=== PATIENT | male | born 1965 | race Caucasian/White ===

== ENCOUNTER 2016-07-12 15:33 | Emergency (ER) | payer OTHER ==
[~2016-07-12] VITALS: Ht 162.6 cm; Wt 76.0 kg
[2016-07-12 15:38] VITALS: Ht 162.6 cm; Wt 76.0 kg
[2016-07-12] MEDS ORDERED: morphine 4 MG/ML VIAL IV STA (18:57)
[2016-07-12] MEDS ORDERED: ONDANSETRON 4 MG INJ IV STA (18:57)
[2016-07-12 19:23] LABS: ADD UMIC NO; URINE BILIRUBIN (Dip) NEGATIVE (NEGATIVE); URINE BLOOD (Dip) NEGATIVE (NEGATIVE); URINE COLOR LT. YELLOW (YELLOW); URINE GLUCOSE (Dip) >=1000 % (NEGATIVE); URINE KETONES (Dip) NEGATIVE (NEGATIVE); URINE LEUKOCYTE ESTERASE (Dip) NEGATIVE (NEGATIVE); URINE NITRITE (Dip) NEGATIVE (NEGATIVE); URINE TOTAL PROTEIN (Dip) NEGATIVE (NEGATIVE); URINE UROBILINOGEN (Dip) 0.2 E.U./dL (0.1-1.0)
[2016-07-12 19:24] LABS: BASOPHILS % 0.3 % (0.0-2.0); EOSINOPHILS # 0.2 10^3/ul (0.0-0.5); EOSINOPHILS % 1.9 % (0.0-7.0); HEMATOCRIT 47.4 % (42.0-52.0); HEMOGLOBIN 16.5 g/dl (14.0-18.0); LYMPHOCYTES # 1.3 10^3/ul (0.8-2.9); LYMPHOCYTES % 15.4 % (15.0-51.0); MEAN CORPUSCULAR HGB CONC 34.8 g/dl (32.0-37.0); MEAN PLATELET VOLUME 7.7 fl (7.4-10.4); MONOCYTE # 0.8 10^3/ul (0.3-0.9); MONOCYTES % 9.8 % (0.0-11.0); NEUTROPHIL # 6.3 10^3/ul (1.6-7.5); NEUTROPHILS % 72.6 % (39.0-77.0); PLATELET COUNT 312 10^3/UL (140-440); RED BLOOD COUNT 5.15 10^6/ul (4.70-6.10); RED CELL DISTRIBUTION WIDTH 12.6 % (11.5-14.5); UNCORRECTED WBC 8.6 10^3/ul (4.8-10.8); WHITE BLOOD COUNT 8.6 10^3/ul (4.8-10.8)
[2016-07-12 19:29] LABS: ALBUMIN 4.6 g/dl (3.3-4.9); CONDITION 1
[2016-07-12 19:32] LABS: ALBUMIN/GLOBULIN RATIO 1.12; BILIRUBIN,INDIRECT 1.8 mg/dl (0-1.1); BILIRUBIN,TOTAL 1.8 mg/dl (0.2-1.3); CREATININE 0.63 mg/dl (0.61-1.24); TOTAL PROTEIN 8.7 g/dl (6.1-8.1)
[2016-07-12] MEDS ORDERED: SOD CHLORIDE 0.9% 1,000 ML IV ONE (19:41)
--- NOTE | 2016-07-12 19:56 | RADRPT ---
PROCEDURE: Chest x-ray CLINICAL INDICATION: Abdominal pain TECHNIQUE: Chest single view COMPARISON: None FINDINGS: The heart is normal in size. The pulmonary vessels are normal in caliber. The lungs are clear. Th e costophrenic angles are sharp. The visualized bony thorax is unremarkable. IMPRESSION: No acute cardiopulmonary disease. RPTAT: HH .Escobar Irby MD, Date Time Electronically viewed and signed by .Escobar Irby MD, MD on 07/12/2016 19:56 .W/
[2016-07-12] MEDS ORDERED: BENAZEPRIL 20 MG TAB PO ONE (20:30)
[2016-07-12] MEDS ORDERED: FAMOTIDINE 20 MG INJ IV ONE (20:30)
[2016-07-12] MEDS ORDERED: FAMO-18 PO (20:31)
[2016-07-12] MEDS ORDERED: HYDR-902 PO (20:31)
[2016-07-12] MEDS ORDERED: BENA20TA65 PO (20:31)
--- NOTE | 2016-07-12 20:39 | ERD ---
ER Documentation Chief Complaint Date/Time DATE: 07/12/16 TIME: 20:36 Chief Complaint abdominal pain x 7 days and chest pain x 5 days HPI This 51-year-old male presents with some abdominal pain worsening over the last week. Pain is in the epigastric area slightly radiating up to his chest. Denies any fevers or vomiting. Patient gives a history of pancreatitis in the past. He did stop drinking alcohol and his symptoms resolved although he did drink alcohol recently over the holidays. Denies any blood, lower abdominal pain, cough, shortness of breath or sustained chest pain. ROS All systems reviewed and are negative except as per history of present illness. Medications Home Meds Active Scripts Benazepril Hcl* (Lotensin*) 20 Mg Tablet, 20 MG PO DAILY, #30 TAB Prov:ERVIN ROWE MD 07/12/16 Famotidine* (Pepcid*) 20 Mg Tablet, 20 MG PO BID for 14 Days, #30 TAB Prov:ERVIN ROWE MD 07/12/16 Hydrocodone/Acetaminophen ([place] 10-325 Tablet) 1 Each Tablet, 1 TAB PO Q6H Y for PAIN, #15 TAB Prov:ERVIN ROWE MD 07/12/16 Allergies Allergies: Coded Allergies: No Known Allergy (Unverified , 07/12/16) PMhx/Soc Medical and Surgical Hx: pt denies Surgical Hx History of Surgery: No Anesthesia Reaction: No Hx Neurological Disorder: No Hx Respiratory Disorders: No Hx Cardiac Disorders: Yes (HTN) Hx Psychiatric Problems: No Hx Miscellaneous Medical Probl: Yes (DM, high cholesterol, gallstones) Hx Alcohol Use: Yes Hx Substance Use: No Hx Tobacco Use: No Smoking Status: Never smoker Physical Exam Vitals Vital Signs Date Time Temp Pulse Resp B/P Pulse Ox O2 Delivery O2 Flow Rate FiO2 07/12/16 20:33 86 183/88 07/12/16 15:38 98.1 97 18 190/104 98 Physical Exam Const: [] Head: Atraumatic Eyes: Normal Conjunctiva ENT: Normal External Ears, Nose and Mouth. Neck: Full range of motion..~ No meningismus. Resp: Clear to auscultation bilaterally Cardio: Regular rate and rhythm, no murmurs Abd: Soft, non tender, non distended. Normal bowel sounds Skin: No petechiae or rashes Back: No midline or flank tenderness Ext: No cyanosis, or edema Neur: Awake and alert Psych: Normal Mood and Affect Result Diagram: 07/12/16190907/12/161909 Results 24 hrs Laboratory Tests Test 07/12/16 19:10 Alanine Aminotransferase (ALT/SGPT) 41IU/L Albumin 4.6g/dl Albumin/Globulin Ratio 1.12 Alkaline Phosphatase 79IU/L Anion Gap 19 Aspartate Amino Transf (AST/SGOT) 41IU/L Basophils # 0.010^3/ul Basophils % 0.3% Blood Urea Nitrogen 8mg/dl Calcium Level 9.0mg/dl Carbon Dioxide Level 28mmol/L Chloride Level 97mmol/L Creatinine 0.63mg/dl Direct Bilirubin 0.00mg/dl Eosinophils # 0.210^3/ul Eosinophils % 1.9% Globulin 4.10g/dl Glucose Level 194mg/dl Hematocrit 47.4% Hemoglobin 16.5g/dl Indirect Bilirubin 1.8mg/dl Lipase 1042U/L Lymphocytes # 1.310^3/ul Lymphocytes % 15.4% Mean Corpuscular Hemoglobin 32.0pg Mean Corpuscular Hemoglobin Concent 34.8g/dl Mean Corpuscular Volume 92.0fl Mean Platelet Volume 7.7fl Monocytes # 0.810^3/ul Monocytes % 9.8% Neutrophils # 6.310^3/ul Neutrophils % 72.6% Nucleated Red Blood Cells # 0.010^3/ul Nucleated Red Blood Cells % 0.0/100WBC Platelet Count 91774^3/UL Potassium Level 4.0mmol/L Red Blood Count 5.1510^6/ul Red Cell Distribution Width 12.6% Sodium Level 140mmol/L Total Bilirubin 1.8mg/dl Total Protein 8.7g/dl Urine Bilirubin NEGATIVE Urine Clarity CLEAR Urine Color LT. YELLOW Urine Glucose >=1000% Urine Hemoglobin NEGATIVE Urine Ketones NEGATIVE Urine Leukocyte Esterase NEGATIVE Urine Nitrite NEGATIVE Urine Specific [place] <=1.005 Urine Total Protein NEGATIVE Urine Urobilinogen 0.2 E.U./dL Urine pH 6.0 White Blood Count 8.610^3/ul Current Medications Medications (Trade) Dose Ordered Sig/Doris Route PRN Reason Start Time Stop Time Status Last Admin Dose Admin Morphine Sulfate (morphine) 4 mg ONCE STAT IV 07/12/16 18:57 07/12/16 18:58 DC 07/12/16 19:20 Ondansetron HCl 4 mg 4 mg ONCE STAT IV 07/12/16 18:57 07/12/16 18:58 DC 07/12/16 19:20 Sodium Chloride (NS) 1,000 ml @ 0 mls/hr Q0M ONCE IV 07/12/16 19:41 07/12/16 19:42 DC 07/12/16 19:46 Famotidine (Pepcid Iv) 20 mg ONCE ONCE IV 07/12/16 20:30 07/12/16 20:31 DC Benazepril HCl (Lotensin) 20 mg ONCE ONCE PO 07/12/16 20:30 07/12/16 20:31 DC Procedures/MDM CBC is normal and CMP shows no acute abnormalities except for slight elevation of total bilirubin and direct bili. Lipase is 1042,, slightly above 3 times normal. Patient was given morphine 4 mg IV, Zofran 4 mg IV Pepcid 20 mg IV. Patient had resolution of pain after observation treatment. Patient additionally was noted to have elevated blood pressure and is requesting treatment for this. Patient's symptoms appear to likely be due to a re- exacerbation of previous pancreatitis. Signs or symptoms are consistent with leukocytosis, bacterial infection or sepsis as he has no fevers or vomiting. Patient currently appears safe for outpatient management and will be treated with a short course of [place], Pepcid, instructions to avoid alcohol use will be started on Lotensin for his elevated blood pressure. Patient was advised to follow-up with primary doctor this week return for fevers, vomiting, otherwise recommend recheck laboratory work in 2-3 days. Signs or symptoms are not consistent with acute abdomen, obstruction, sepsis. EKG: Rate/Rhythm: [Normal Sinus Rhythm] rate equals 89 QRS, ST, T-waves: [No changes consistent w/ acute ischemia] Impression: [No evidence of ischemia or arrhythmia]. Impression-normal EKG Chest X-ray 1V Interpreted by me: Soft Tissue: No acute abnormalities Bones: No acute abnormalities Mediastinum/Cardiac Silhouette/Lungs: [No acute abnormalities]. Impression- normal 1 view chest x-ray Departure Diagnosis: Primary Impression: Hypertension Hypertension type: essential hypertension Qualified Code: I10 - Essential hypertension Additional Impressions: Pancreatitis Chronicity: acute Pancreatitis type: unspecified pancreatitis type Acute pancreatitis complication: unspecified Qualified Code: K85.90 - Acute pancreatitis, unspecified complication status, unspecified pancreatitis type Abdominal pain Abdominal location: epigastric Qualified Code: R10.13 - Epigastric pain Condition: Stable Patient Instructions: Abdominal Pain, Hypertension, New (Begin Treatment), Pancreatitis Additional Instructions: Laboratory evaluation consistent with pancreatitis but no current signs of infection. Recommend recheck in 1-2 days for worsening pain, fevers, vomiting. Avoid alcohol use. Recheck blood pressure with primary doctor as well. ERVIN ROWE MD Jul 12, 2016 20:38
[2016-07-12] MEDS ORDERED: morphine 10 MG INJ IV ONE (22:00)
[2016-07-12 22:30] VITALS: BP 142/78; PULSE 83; RESP 16; TEMP 98.6
== END 2016-07-12 22:44 | disposition home or self-care (01) ==
LOC: FTE 15:33
DX: I10 Essential (primary) hypertension (principal); K85.90 Acute pancreatitis without necrosis or infection, unspecified; E11.9 Type 2 diabetes mellitus without complications
CPT/HCPCS: 36415; 71010; 80053; 81003; 83690; 85025; 93005; 96374; 96375; 96376; J2270; J2405; J7030; Z7502; Z7610

== ENCOUNTER 2016-08-21 21:50 | Emergency (ER) | payer OTHER ==
[~2016-08-21] VITALS: Ht 152.4 cm; Wt 72.5 kg
[~2016-08-21 21:50] MED LIST: BENA20TA65 PO; FAMO-18 PO; HYDR-902 PO
[2016-08-21 22:01] VITALS: Ht 152.4 cm; Wt 72.5 kg
[2016-08-21] MEDS ORDERED: ONDANSETRON 4 MG INJ IV STA (22:45)
[2016-08-21] MEDS ORDERED: LIDOCAINE/MYLANTA 40 ML BTL PO ONE (23:00)
[2016-08-21] MEDS ORDERED: FAMOTIDINE 20 MG INJ IV ONE (23:00)
[2016-08-21 23:18] LABS: ALBUMIN 4.4 g/dl (3.3-4.9)
[2016-08-21 23:19] LABS: POTASSIUM 3.9 mmol/L (3.5-5.1)
[2016-08-21 23:20] LABS: BASOPHILS % 0.4 % (0.0-2.0); EOSINOPHILS # 0.1 10^3/ul (0.0-0.5); EOSINOPHILS % 1.3 % (0.0-7.0); HEMATOCRIT 49.2 % (42.0-52.0); HEMOGLOBIN 17.2 g/dl (14.0-18.0); LYMPHOCYTES # 1.3 10^3/ul (0.8-2.9); LYMPHOCYTES % 16.6 % (15.0-51.0); MEAN CORPUSCULAR HEMOGLOBIN 32.3 pg (29.0-33.0); MEAN CORPUSCULAR VOLUME 92.4 fl (82.0-101.0); MONOCYTE # 0.8 10^3/ul (0.3-0.9); MONOCYTES % 10.1 % (0.0-11.0); NEUTROPHIL # 5.5 10^3/ul (1.6-7.5); NEUTROPHILS % 71.6 % (39.0-77.0); PLATELET COUNT 247 10^3/UL (140-440); RED BLOOD COUNT 5.32 10^6/ul (4.70-6.10); RED CELL DISTRIBUTION WIDTH 12.5 % (11.5-14.5); UNCORRECTED WBC 7.7 10^3/ul (4.8-10.8); WHITE BLOOD COUNT 7.7 10^3/ul (4.8-10.8)
[2016-08-21 23:21] LABS: ALBUMIN/GLOBULIN RATIO 1.1; BILIRUBIN,INDIRECT 1.3 mg/dl (0-1.1); BILIRUBIN,TOTAL 1.3 mg/dl (0.2-1.3); CONDITION 1; CREATININE 0.64 mg/dl (0.61-1.24); TOTAL PROTEIN 8.4 g/dl (6.1-8.1)
[2016-08-22] MEDS ORDERED: morphine 4 MG/ML VIAL IV ONE (01:25)
--- NOTE | 2016-08-22 01:39 | RADRPT ---
PROCEDURE: XR Chest. CLINICAL INDICATION: Chest pain. TECHNIQUE: Single frontal chest x-ray. COMPARISON: 07/12/2016 FINDINGS: The cardiomediastinal silhouette is unremarkable. There is no CHF.. No focal infiltrate is seen. T here is no pleural effusion. There is no pneumothorax. The osseous structures are unremarkable. IMPRESSION: 1. No active disease. RPTAT: [facility] .Ryan Smith MD, MD Date Time Electronically viewed and signed by .Ryan Smith MD, on 08/22/2016 01:39 .K/
[2016-08-22] MEDS ORDERED: TRAM50TA2 PO (01:51)
[2016-08-22] MEDS ORDERED: PANT40TA3 PO (01:51)
[2016-08-22] MEDS ORDERED: morphine 4 MG/ML VIAL IV STA (01:52)
[2016-08-22] MEDS ORDERED: PANTOPRAZOLE 40 MG INJ IV ONE (02:00)
--- NOTE | 2016-08-22 02:02 | ERD ---
ER Documentation Chief Complaint Date/Time DATE: 08/22/16 TIME: 01:59 Chief Complaint AP WITH CHEST PRESSURE X 4 DAYS, VOMITING & RICE NOTED HPI 51-year-old male a past medical history of alcohol abuse presents to the ED complaining of epigastric pain that radiates diffusely on his abdomen. States that it radiates to the top of his chest. States that he "feels like he is having a heart attack". Denies any family history of heart attacks. Denies any drug use or abdominal surgeries. Reports that he has normal bowel movements. States that he normally drinks a 12 pack of beer daily. Dates that the last drink was yesterday. Denies any shortness of breath, wheezing, fever, chills, dyspnea on exertion, pleuritic chest pain, vomiting, diarrhea, nausea. Denies any dysuria, urgency, frequency, hematuria, scrotal pain. ROS All systems reviewed and are negative except as per history of present illness. Medications Home Meds Active Scripts Tramadol HCl (Tramadol HCl) 50 Mg Tablet, 50 MG PO Q4 Y for PAIN, #20 TAB Prov:JAYNA MAN PA-C 08/22/16 Pantoprazole* (Protonix*) 40 Mg Tablet.dr, 40 MG PO DAILY, #20 TAB Prov:JAYNA MAN PA-C 08/22/16 Benazepril Hcl* (Lotensin*) 20 Mg Tablet, 20 MG PO DAILY, #30 TAB Prov:ERVIN ROWE MD 07/12/16 Famotidine* (Pepcid*) 20 Mg Tablet, 20 MG PO BID for 14 Days, #30 TAB Prov:ERVIN ROWE MD 07/12/16 Hydrocodone/Acetaminophen ([place] 10-325 Tablet) 1 Each Tablet, 1 TAB PO Q6H Y for PAIN, #15 TAB Prov:ERVIN ROWE MD 07/12/16 Allergies Allergies: Coded Allergies: No Known Allergy (Unverified , 07/12/16) PMhx/Soc History of Surgery: No Anesthesia Reaction: No Hx Neurological Disorder: No Hx Respiratory Disorders: No Hx Cardiac Disorders: Yes (HTN) Hx Psychiatric Problems: No Hx Miscellaneous Medical Probl: Yes (DM, high cholesterol, gallstones) Hx Alcohol Use: Yes Hx Substance Use: No Hx Tobacco Use: No Smoking Status: Never smoker Physical Exam Vitals Vital Signs Date Time Temp Pulse Resp B/P Pulse Ox O2 Delivery O2 Flow Rate FiO2 08/22/16 02:07 111 20 132/89 97 Room Air 08/21/16 22:01 98.1 101 20 153/96 99 Physical Exam Const: [id number], well-nourished. In no acute distress. Head: Atraumatic, normocephalic Eyes: Normal Conjunctiva without injection. No purulent discharge. ENT: Normal external ear, nose. Moist oropharynx without tonsillar exudates. Non -erythematous pharynx. Uvula midline. No drooling. No trismus. Neck: No cervical midline tenderness. Full range of motion. No meningismus. No cervical lymphadenopathy. No JVD. Resp: Clear to auscultation bilaterally. No wheezing, rhonchi, rales, or crackles. No accessory muscle use. No retractions. Cardio: Regular rate and rhythm. No murmurs, rubs or gallops. Abd: Soft, tenderness to palpation of the left upper quadrant, non distended. Normal bowel sounds. No palpable masses. No rebound tenderness. No guarding. Negative McBurney's point. Negative psoas sign. Negative obturator sign. Skin: No petechiae or rashes Back: No midline tenderness. No CVA tenderness. Ext: No cyanosis, or edema. Neur: Awake and alert. Normal gait. Normal coordination. Psych: Normal Mood and Affect Result Diagram: 08/21/16 2300 08/21/16 2300 Results 24 hrs Laboratory Tests Test 08/21/16 00:10 08/21/16 23:00 Troponin I 0.013ng/ml Alanine Aminotransferase (ALT/SGPT) 88IU/L Albumin 4.4g/dl Albumin/Globulin Ratio 1.10 Alkaline Phosphatase 87IU/L Anion Gap 20 Aspartate Amino Transf (AST/SGOT) 107IU/L Basophils # 0.010^3/ul Basophils % 0.4% Blood Urea Nitrogen 9mg/dl Calcium Level 9.0mg/dl Carbon Dioxide Level 24mmol/L Chloride Level 99mmol/L Creatinine 0.64mg/dl Direct Bilirubin 0.00mg/dl Eosinophils # 0.110^3/ul Eosinophils % 1.3% Globulin 4.00g/dl Glucose Level 238mg/dl Hematocrit 49.2% Hemoglobin 17.2g/dl Indirect Bilirubin 1.3mg/dl Lipase 496U/L Lymphocytes # 1.310^3/ul Lymphocytes % 16.6% Mean Corpuscular Hemoglobin 32.3pg Mean Corpuscular Hemoglobin Concent 35.0g/dl Mean Corpuscular Volume 92.4fl Mean Platelet Volume 8.0fl Monocytes # 0.810^3/ul Monocytes % 10.1% Neutrophils # 5.510^3/ul Neutrophils % 71.6% Nucleated Red Blood Cells # 0.010^3/ul Nucleated Red Blood Cells % 0.0/100WBC Platelet Count 25411^3/UL Potassium Level 3.9mmol/L Red Blood Count 5.3210^6/ul Red Cell Distribution Width 12.5% Sodium Level 139mmol/L Total Bilirubin 1.3mg/dl Total Protein 8.4g/dl White Blood Count 7.710^3/ul Current Medications Medications (Trade) Dose Ordered Sig/Doris Route PRN Reason Start Time Stop Time Status Last Admin Dose Admin Ondansetron HCl (Zofran Inj) 4 mg ONCE STAT IV 08/21/16 22:45 08/21/16 22:47 DC 08/21/16 23:01 Famotidine (Pepcid Iv) 20 mg ONCE ONCE IV 08/21/16 23:00 08/21/16 23:01 DC 08/21/16 23:01 Miscellaneous Medication (Gi Cocktail (2)) 40 ml ONCE ONCE PO 08/21/16 23:00 08/21/16 23:01 DC 08/21/16 23:01 Morphine Sulfate (morphine) 4 mg ONCE ONCE IV 08/22/16 01:25 08/22/16 01:26 DC 08/22/16 01:30 Pantoprazole (Protonix Iv) 40 mg ONCE ONCE IV 08/22/16 02:00 08/22/16 02:01 DC 08/22/16 02:02 Morphine Sulfate (morphine) 3 mg ONCE STAT IV 08/22/16 01:52 08/22/16 01:53 DC 08/22/16 02:02 Procedures/MDM This is a 51-year-old male with a past medical history pancreatitis and alcohol abuse presents the ED complaining of epigastric pain and chest pain. Patient is afebrile and nontoxic-appearing. Patient has normal vital signs. Patient was further worked up with CBC, CMP, lipase. Patient's pain and symptoms have improved after treatment with 7 mg IV morphine, GI cocktail, 20 mg IV famotidine , 40 mg IV Protonix, 1 L normal saline. CBC: No leukocytosis. No e/o of systemic infection. No e/o anemia. CMP: No e/o severe acidosis, alkalosis, renal failure, hyperglycemia noted without any signs of diabetic ketoacidosis, liver disease Lipase is not 3 times the limit. Urine: No leukocyte esterase, no nitrites, no hematuria. Troponin within normal limits EKG reviewed and interpreted by Dr. Yuen Rate/Rhythm: [92 bpm, Normal Sinus Rhythm] No ectopy, no ST elevations, normal axis. QRS, ST, T-waves: [No changes consistent w/ acute ischemia] Impression: [No evidence of ischemia or arrhythmia] No indication for imaging of the abdomen at this time as patient has chronic pancreatitis and likely pain is secondary to exacerbation with alcohol use last night. A differential diagnosis considered includes but is not limited to gastritis, GERD, peptic ulcer disease, cholecystitis, choledocholithiasis, cholangitis, pancreatitis, appendicitis, bowel obstruction, ileus, volvulus, nephrolithiasis, pyelonephritis, hepatitis, perforated viscus, diverticulitis, abdominal hernia, acute abdomen, mesenteric ischemia or other emergent conditions. Low suspicion for cholecystitis, appendicitis, choledocholithiasis, acute pancreatitis, acute myocardial infarction, pneumothorax, pneumonia, cardiac tamponade, pulmonary embolism, AAA, aortic dissection, Boerhaave's syndrome, cardiac dysrhythmias,meningitis, intracranial bleed, seizure, stroke, TIA or other emergent conditions. This case was discussed with my supervising physician, Dr. Avelar who stated that patient can be discharged and managed on an outpatient basis. Discharge medications: Protonix, Tramadol Follow up with primary care physician in 1-2 days for referral to shooter's helper. Instructed patient to return to the ED sooner for any worsening symptoms. Patient's questions were answered. Patient understood and agreed with discharge plan. Patient discharged stable. Departure Diagnosis: Primary Impression: Abdominal pain Abdominal location: left upper quadrant Qualified Code: R10.12 - Left upper quadrant pain Additional Impression: Alcohol use Condition: Stable Patient Instructions: Alcohol Addiction, Chronic Pancreatitis Referrals: COMMUNITY CLINICS YOU HAVE RECEIVED A MEDICAL SCREENING EXAM AND THE RESULTS INDICATE THAT YOU DO NOT HAVE A CONDITION THAT REQUIRES URGENT TREATMENT IN THE EMERGENCY DEPARTMENT. FURTHER EVALUATION AND TREATMENT OF YOUR CONDITION CAN WAIT UNTIL YOU ARE SEEN IN YOUR DOCTORS OFFICE WITHIN THE NEXT 1-2 DAYS. IT IS YOUR RESPONSIBILITY TO MAKE AN APPOINTMENT FOR FOLOW-UP CARE. IF YOU HAVE A PRIMARY DOCTOR --you should call your primary doctor and schedule an appointment IF YOU DO NOT HAVE A PRIMARY DOCTOR YOU CAN CALL OUR PHYSICIAN REFERRAL HOTLINE AT IF YOU CAN NOT AFFORD TO SEE A PHYSICIAN YOU CAN CHOSE FROM THE FOLLOWING [facility] [address] [address] [facility]. [facility] [address] [facility]. [facility] [address] [facility] [address] [facility] [address] [facility]. [facility] [address] [facility]. [facility] YOU HAVE RECEIVED A MEDICAL SCREENING EXAM AND THE RESULTS INDICATE THAT YOU DO NOT HAVE A CONDITION THAT REQUIRES URGENT TREATMENT IN THE EMERGENCY DEPARTMENT. FURTHER EVALUATION AND TREATMENT OF YOUR CONDITION CAN WAIT UNTIL YOU ARE SEEN IN YOUR DOCTORS OFFICE WITHIN THE NEXT 1-2 DAYS. IT IS YOUR RESPONSIBILITY TO MAKE AN APPOINTMENT FOR FOLOW-UP CARE. IF YOU HAVE A PRIMARY DOCTOR --you should call your primary doctor and schedule and appointment IF YOU DO NOT HAVE A PRIMARY DOCTOR YOU CAN CALL OUR PHYSICIAN REFERRAL HOTLINE AT . IF YOU CAN NOT AFFORD TO SEE A PHYSICIAN YOU CAN CHOSE FROM THE FOLLOWING [facility] INSTITUTIONS: [facility] [address] [place] [address] [facility] [address] [place] [address] [facility] [address] [place] [address] [facility] Additional Instructions: Visite a pack gavin portillo para un EXAMEN.Regrese a estas instalaciones si no se mejora holland esperbamos o holland le dijimos. La medicina que se le recet puede causarle sueo.NO DEBE MANEJAR NI OPERAR MAQUINARIAS PELIGROSAS mientras esta tomando esta medicina! JAYNA MAN PA-C Aug 22, 2016 02:02
[2016-08-22 02:07] VITALS: BP 132/89; PULSE 111; RESP 20
== END 2016-08-22 02:15 | disposition home or self-care (01) ==
LOC: FTE 21:50
DX: R10.12 Left upper quadrant pain (principal); I10 Essential (primary) hypertension; E11.9 Type 2 diabetes mellitus without complications; R11.10 Vomiting, unspecified; F10.10 Alcohol abuse, uncomplicated
CPT/HCPCS: 36415; 71010; 80053; 83690; 84484; 85025; 93005; 96374; 96375; 96376; C9113; J2270; J2405; Z7502; Z7610

== ENCOUNTER 2017-09-18 09:01 | Emergency (ER) | END 2017-09-18 13:12 | disposition home or self-care (01) ==

== ENCOUNTER 2018-07-18 10:00 | Day surgery (SDC) | payer OTHER ==
[2018-07-18] VITALS (10 sets, daily range): BP systolic 103–127; BP diastolic 68–81; PULSE 78–94; RESP 17–19; Ht 162.6 cm; Wt 76.9 kg
[~2018-07-18] VITALS: Ht 162.6 cm; Wt 76.9 kg
[~2018-07-18 10:00] MED LIST changes: +AMLO5TAB4 PO; +BENA20TA4 PO; -FAMO-18 PO; +FAMO-96 PO; +HYDR-3980 PO; -HYDR-902 PO; +METF-849 PO; +PANT40TA3 PO; +TRAM50TA2 PO
[2018-07-18] MEDS ORDERED: SOD CHLORIDE 0.9% 1,000 ML IV SCH (10:30)
[2018-07-18] MEDS ORDERED: CEFAZOLIN 2 GM/50 ML (PMX) 50 ML IVPB ONE (10:30)
[2018-07-18] MEDS ORDERED: GABA100C14 PO (10:35)
[2018-07-18] MEDS ORDERED: MTF1000T PO (10:36)
[2018-07-18] MEDS ORDERED: ASPI-903 PO (10:36)
[2018-07-18] MEDS ORDERED: GLIM2TAB PO (10:37)
[2018-07-18] MEDS ORDERED: ATOR40TA68 PO (10:37)
[2018-07-18] MEDS ORDERED: BUPIVACAINE 0.25% (MPF) 30 ML INJ ONE (11:38)
[2018-07-18] MEDS ORDERED: LIDOCAINE 2% (MDV) 20 ML INJ ONE (12:12)
[2018-07-18] MEDS ORDERED: BUPIVACAINE 0.5% (SDV) 30 ML INJ ONE (12:12)
--- NOTE | 2018-07-18 12:39 | PREAC ---
Date/Time of Note Date/Time of Note DATE: 07/18/18 TIME: 12:37 Anesthesia Eval and Record Evaluation Time Pre-Procedure Interview DATE: 07/18/18 TIME: 12:37 Age 53 Sex male NPO: 8 hrs Preoperative diagnosis Back mass Planned procedure Excision of back mass Past Medical History Past Medical History: Includes Cardio: HTN, Dyslipidemia GI: Morbid obesity Surgery & Anesthesia Issues No known issue Meds Anticoagulation: Yes Beta Juve within 24 hr: No Reason Beta Juve not given: Pt. not on B-Juve Active Scripts Benazepril Hcl* (Benazepril Hcl*) 20 Mg Tablet, 20 MG PO DAILY, #30 TAB Prov:KJ ARRINGTON MD 09/18/17 Amlodipine Besylate* (Norvasc*) 5 Mg Tablet, 5 MG PO DAILY for 30 Days, #30 TAB Prov:KJ ARRINGTON MD 09/18/17 Reported Medications Atorvastatin* (Atorvastatin*) 40 Mg Tablet, 40 MG PO QHS, #30 TAB 07/18/18 Glimepiride* (Glimepiride*) 2 Mg Tablet, 2 MG PO DAILY, TAB 07/18/18 Aspirin* (Aspirin* Chew) 81 Mg Tab.chew, 81 MG PO DAILY, TAB.CHEW 07/18/18 Metformin* (Glucophage*) 1,000 Mg Tablet, 1000 MG PO BID, #60 TAB 07/18/18 Gabapentin* (Gabapentin*) 100 Mg Capsule, 100 MG PO TID, #90 CAP 07/18/18 Discontinued Reported Medications Metformin* (Glucophage*) 500 Mg Tab, 500 MG PO BID WITH MEALS, #60 TAB 09/18/17 Discontinued Scripts Metformin* (Glucophage*) 500 Mg Tab, 500 MG PO BID for 30 Days, TAB Prov:KJ ARRINGTON MD 09/18/17 Tramadol HCl (Tramadol HCl) 50 Mg Tablet, 50 MG PO Q4 PRN for PAIN, #20 TAB Prov:JAYNA MAN PA-C 08/22/16 Pantoprazole* (Protonix*) 40 Mg Tablet.dr, 40 MG PO DAILY, #20 TAB Prov:JAYNA MAN PA-C 08/22/16 Benazepril Hcl* (Lotensin*) 20 Mg Tablet, 20 MG PO DAILY, #30 TAB Prov:ERVIN ROWE MD 07/12/16 Famotidine* (Pepcid*) 20 Mg Tablet, 20 MG PO BID for 14 Days, #30 TAB Prov:ERVIN ROWE MD 07/12/16 Hydrocodone/Acetaminophen ([place] 10-325 Tablet) 1 Each Tablet, 1 TAB PO Q6H PRN for PAIN, #15 TAB Prov:ERVIN ROWE MD 07/12/16 Current Medications Sodium Chloride 1,000 ml @ 75 mls/hr [id number] IV ; Start 07/18/18 at 10:30; Stop 07/18/18 at 23:49 Meds reviewed: Yes Allergies Coded Allergies: No Known Allergy (Unverified , 07/18/18) Allergies Reviewed: Yes Labs/Studies Labs Reviewed: Reviewed by anesthesiologist test: N/A Pre-procedure Exam Last vitals Vital Signs Date Temp Pulse Resp B/P (MAP) Pulse Ox O2 O2 Flow FiO2 Time Delivery Rate 07/18/18 97.0 94 18 127/70 100 11:17 (89) Airway: Adequate mouth opening, Adequate thyromental dist Mallampati: Mallampati II Teeth: Normal Lung: Normal Heart: Normal ASA Physical Status ASA physical status: 3 Emergency: None Planned Anesthetic General/MAC: MAC Planned Pain Management Parenteral pain med Pre-operative Attestations Prior to commencing anesthesia and surgery, the patient was re-evaluated, there was verification of: *The patient's identity *The results of appropriate recent lab work and preoperative vital signs *The above evaluation not changing prior to induction *Anesthetic plan, risk benefits, alternative and complications discussed with patient/family; questions answered; patient/family understands, accepts and wish es to proceed. ADAM JOSEPH MD Jul 18, 2018 12:39
[2018-07-18] MEDS ORDERED: MIDAZOLAM 1 MG/ML 2 ML INJ ONE (12:41)
[2018-07-18] MEDS ORDERED: FENTAnyl 50 MCG/ML VIAL ONE (12:41)
[2018-07-18] MEDS ORDERED: CEFAZOLIN 1 GM INJ ONE (13:08)
--- NOTE | 2018-07-18 13:11 | OPR ---
Date/Time of Note Date/Time of Note DATE: 07/18/18 TIME: 13:10 Operative Report Procedure Date: Jul 18, 2018 Preoperative Diagnosis right back mass Postoperative Diagnosis same Operation/Procedure Performed 1. excision of right back mass 6 cm mass 6 cm incision 2. localized adjacent tissue transfer with the use of skin flaps 12 sq cm defect 3. therapeutic injection of subcutaneous local anesthesia Surgeon see signature line Lithographic Stripper none Anesthesia Type: MAC Estimated Blood Loss: 0 - 10 ml's Transfusion none Specimen right back mass Grafts/Implants none Complications none Pt Condition Post Procedure: stable Indications This is a 53-year-old male with a right upper back mass. He requires surgical excision. Risks alternatives benefits and percent were discussed the patient. Patient expresses understanding and consents to the operation. Procedure Description Patient is taken to the OR and prepped and draped in usual sterile fashion. Surgical timeout was performed. IV antibiotics given. Subcutaneous therapeutic anesthesia was injected throughout the incision site and around the mass. 15 blade is used to make a transverse incision. Dissection with cautery taken onto the mass and the mass was circumferentially excised. This is taken down all with the muscular layer. Good hemostasis established. Due to the large tissue defect localized adjacent to his transfer with these of skin flaps were performed. Multilayer closure with interrupted 3-0 Vicryl and skin gabriella. Dry dressings were applied. Moriah LEIVA Jul 18, 2018 13:11
--- NOTE | 2018-07-18 13:17 | PAC ---
Date/Time of Note Date/Time of Note DATE: 07/18/18 TIME: 13:16 Post-Anesthesia Notes Post-Anesthesia Note Last documented vital signs Vital Signs Date Temp Pulse Resp B/P (MAP) Pulse Ox O2 O2 Flow FiO2 Time Delivery Rate 07/18/18 97.0 94 18 127/70 100 11:17 (89) Activity: WNL Respiratory function: WNL Cardiovascular function: WNL Mental status: Baseline Pain reasonably controlled: Yes Hydration appropriate: Yes Nausea/Vomiting absent: Yes Comments BP:110/74,pulse:82, T:99,8, spo2:100% ADAM JOSEPH MD Jul 18, 2018 13:17
[2018-07-18] MEDS ORDERED: HYDROCODONE/APAP (5/325) TAB PO ONE (13:30)
[2018-07-18] MEDS ORDERED: DIPHENHYDRAMINE 50 MG INJ IV PRN (13:30)
[2018-07-18] MEDS ORDERED: FENTAnyl 50 MCG/ML VIAL IV PRN (13:30)
[2018-07-18] MEDS ORDERED: LABETALOL HCL 20MG INJ IV PRN (13:30)
[2018-07-18] MEDS ORDERED: hydrALAzine 20 MG INJ IV PRN (13:30)
[2018-07-18] MEDS ORDERED: HYDROmorphONE 1 MG/5 ML IV SYRINGE IV PRN ×2 (13:30)
[2018-07-18] MEDS ORDERED: MEPERIDINE 25 MG INJ IV PRN (13:30)
== END 2018-07-18 15:00 | disposition home or self-care (01) ==
LOC: SDS 10:00
PROVIDERS: ATTEND Surgery
DX: R22.2 Localized swelling, mass and lump, trunk (principal); I10 Essential (primary) hypertension; E11.8 Type 2 diabetes mellitus with unspecified complications; Z79.84 Long term (current) use of oral hypoglycemic drugs
CPT/HCPCS: 14000; 82962; J0690; J2250; J3010; Z7610; 88307